=== PATIENT | male | born 1985 | race Caucasian/White ===

== ENCOUNTER 2024-09-08 11:08 | Emergency (ER) | payer OTHER ==
[2024-09-08 11:57] LABS: BASOPHILS ABSOLUTE AUTO 0.1 x10-3/uL (0.0-0.3); BLOOD UREA NITROGEN,BUN 11 mg/dL (7-18); CALCIUM 9.1 mg/dL (8.6-10.2); CARBON DIOXIDE,CO2 32 mmol/L (21-32); CHLORIDE,CL 107 mmol/L (100-110); EOSINOPHILS ABSOLUTE AUTO 0.2 x10-3/uL (0.0-0.6); EOSINOPHILS PERCENT AUTO 3.6 % (0.1-6.8); EST CRCL DRUG DOSING (CG) 107.72 mL/min; ESTIMATED GFR 99 mL/min (>60); GLUCOSE RANDOM 110 mg/dL (80-116); HEMATOCRIT 41.3 % (38.3-50.1); HEMOGLOBIN 14.1 g/dL (12.9-17.7); LYMPHOCYTES ABSOLUTE AUTO 1.2 x10-3/uL (0.5-4.5); MEAN CORPUSCULAR HEMOGLOBIN 29.8 pg (27.0-33.3); MEAN CORPUSCULAR HGB CONC 34.1 g/dL (28.7-35.3); MEAN CORPUSCULAR VOLUME 87.3 fL (80.8-98.7); MONOCYTES ABSOLUTE AUTO 0.4 x10-3/uL (0.0-1.2); MONOCYTES PERCENT AUTO 6.2 % (5.5-15.2); NEUTROPHILS ABSOLUTE AUTO 4.9 x10-3/uL (1.7-6.9); NEUTROPHILS PERCENT AUTO 71.2 % (40.3-71.8); PLATELET COUNT,PLT 251 x10(3)uL (117-477); POTASSIUM,K 4.7 mmol/L (3.5-5.3); RED BLOOD CELL COUNT 4.73 x10(6)uL (3.90-5.90); RED CELL DISTRIBUTION WIDTH 12.9 % (12.4-15.0); SODIUM,NA 142 mmol/L (135-145); WHITE BLOOD CELL COUNT,WBC 6.9 x10-3/uL (3.2-10.1)
[2024-09-08 12:03] LABS: INFLUENZA A NAA NEGATIVE (NEGATIVE); INFLUENZA B NAA NEGATIVE (NEGATIVE)
[2024-09-08 12:04] LABS: ALANINE AMINOTRANSFERASE,ALT 42 U/L (12-36); ALBUMIN 3.6 g/dL (3.5-5.2); ALKALINE PHOSPHATASE 60 IU/L (56-112); ASPARTATE AMNIOTRANSFERASE,AST 18 IU/L (5-25); BILIRUBIN TOTAL 0.4 mg/dL (0.1-1.3); PROTEIN TOTAL,TP 7.1 g/dL (6.0-8.0)
[2024-09-08 12:07] LABS: CORONAVIRUS COVID-19 NAA NEGATIVE (NEGATIVE)
== END 2024-09-08 12:21 | disposition home or self-care (01) ==
LOC: FB.ED 11:08
DX: J02.9 Acute pharyngitis, unspecified (principal)
CPT/HCPCS: 0240U; 36415; 80053; 85025; 86140; 87651-QW; 99283

== ENCOUNTER 2024-10-29 16:32 | Emergency (ER) | payer OTHER, MEDICAID ==
[2024-10-29] MEDS: cefTRIAXone 1 GM Vial IM ONE (19:28)
== END 2024-10-29 19:31 | disposition home or self-care (01) ==
LOC: FB.ED 16:32
DX: J01.00 Acute maxillary sinusitis, unspecified (principal); Z90.89 Acquired absence of other organs; Z79.899 Other long term (current) drug therapy
CPT/HCPCS: 96372; 99282; J0696

== ENCOUNTER 2025-06-05 09:12 | Emergency (ER) | payer MEDICAID, OTHER | END 2025-06-05 10:00 | disposition home or self-care (01) | LOC: FB.ED 09:12 | DX: K02.9 Dental caries, unspecified (principal); K04.7 Periapical abscess without sinus; R03.0 Elevated blood-pressure reading, without diagnosis of hypertension | CPT/HCPCS: 99282; 99283 ==